=== PATIENT | male | born 1970 | race Caucasian/White ===

== ENCOUNTER 2025-01-03 11:28 | Emergency (ER) | payer SELFPAY ==
--- NOTE | 2025-01-03 11:33 | EKG_ITS ---
[facility] Test Date: 2025-01-03 Pat Name: GUILLERMO PARKER Department: Room: - Gender: Male [employer]: : 1970 Requested By: ED Temporary Provider Order Number: [id number] Reading MD: ED Temporary Provider Measurements Intervals [place] Rate: 71 P: 54 GA: 195 QRS: 17 QRSD: 84 T: 34 QT: 364 QTc: 397 Interpretive Statements SINUS RHYTHM Compared to ECG 06/08/2024 09:14:27 No significant changes /store/S0/[id number].pdf
[2025-01-03 11:46] VITALS: BP 129/84; PULSE 65; RESP 18; TEMP 37.1; O2SAT 98; BMI 28.5
--- NOTE | 2025-01-03 12:03 | XR_ITS ---
Examination: PA lateral chest 2 views Technique: Upright PA lateral chest 2 views Date and time: January 03, 2025 1315 hrs. Indications: Coughing chest pain beginning today. Findings: Normal heart size No lobar pneumonia Accentuation basilar bronchovascular markings. No pulmonary edema Impression: Bronchitis pattern
--- NOTE | 2025-01-03 12:03 | PD.EDRME ---
Rapid Medical Screening Exam RME Arrival date/time: 01/03/25 11:28 54-year-old male presents to the emergency department today for complaint of abdominal pain and chest pain Chief Complaint: Chest Pain Time Seen by Provider: 01/03/25 11:42 Vital signs: Vital Signs Temperature 98.7 F 01/03/25 11:46 Pulse Rate 65 01/03/25 11:46 Respiratory Rate 18 01/03/25 11:46 Blood Pressure 129/84 01/03/25 11:46 Pulse Oximetry (%) 98 01/03/25 11:46 Oxygen Delivery Method Room Air 01/03/25 11:46
[2025-01-03 12:50] LABS: Basophils # (Auto) 0.1 Thou/mm3 (0.0-0.2); Basophils % (Auto) 1 % (0-2.5); Eosinophils # (Auto) 0.3 Thou/mm3 (0.0-0.5); Eosinophils % (Auto) 4 % (0-10); Hematocrit 42.6 % (41.0-53.0); Hemoglobin 14.6 g/dL (13.5-16.0); Immature Granulocytes % (Auto) 1 % (0-0); Immature Granulocytes Auto 0.05 Thou/mm3 (0.00-0.00); Lymphocytes # (Auto) 1.9 Thou/mm3 (1.0-4.8); Lymphocytes % (Auto) 25 % (10-50); Mean Corpuscular HGB Conc 34.3 g/dl (31.0-37.0); Mean Corpuscular Hemoglobin 30.5 pg (25.0-35.0); Mean Corpuscular Volume 89 fL (80-100); Monocytes # (Auto) 0.6 Thou/mm3 (0.0-0.8); Monocytes % (Auto) 8 % (0-12); Neutrophils # (Auto) 4.7 Thou/mm3 (1.8-7.7); Neutrophils % (Auto) 62 % (37-80); Nucleated Red Blood Cell % 0 /100 WBC (0); Platelet Count 239 Thou/mm3 (140-440); RDW Standard Deviation 42.9 fL (35.1-43.9); Red Blood Count 4.78 Miln/mm3 (4.50-5.90); White Blood Count 7.6 Thou/mm3 (3.8-10.6)
[2025-01-03 13:12] LABS: Alanine Aminotransferase 19 U/L (10-49); Albumin, Serum 4.6 gm/dL (3.5-5.0); Albumin/Globulin Ratio 1.6 (1.2-2.2); Alkaline Phosphatase 96 U/L (46-116); Anion Gap 9 (7-16); Aspartate Amino Transferase 17 U/L (0-34); BUN/Creatinine Ratio 7 Ratio (12-20); Bilirubin,Total 0.5 mg/dL (0.3-1.2); Blood Urea Nitrogen 8 mg/dL (9-23); Calcium 9.6 mg/dL (8.3-10.6); Calcium (Corrected) 9.6 mg/dL (8.5-10.1); Carbon Dioxide 28.7 mMol/L (20.0-31.0); Chloride 101 mMol/L (98-107); Creatinine (Component) 1.2 mg/dL (0.6-1.3); Estimated Creatinine Clearance 81.9 mL/min (>60); Globulin 2.9 gm/dL (2.3-3.5); Glucose 89 mg/dL (74-106); Lipase 30 U/L (12-53); Osmolality,Calculated 274 (275-295); Potassium 3.7 mMol/L (3.4-5.1); Sodium 139 mMol/L (136-145); Total Protein 7.5 gm/dL (5.7-8.2); Troponin I < 0.002 ng/mL (0.0-0.045); eGFR > 60 See Note
[2025-01-03 13:23] LABS: B-Type Natriuretic Peptide 42 pg/mL (0-100)
[2025-01-03 15:20] VITALS: BP 125/77; PULSE 67; RESP 18; TEMP 36.7; O2SAT 98
--- NOTE | 2025-01-03 15:39 | PD.EDCHEST ---
ED Chest Pain RME/HPI General Chief Complaint: Chest Pain Stated Complaint: DIZZY, CP/BURNING, VOMITING Time Seen by Provider: 01/03/25 11:42 Arrival date/time: 01/03/25 11:28 RME / HPI RME / HPI narrative: 54-year-old male patient with no significant medical history, came in for evaluation regarding cough. Patient is being having cough for more than a week, after patient was vomiting several times x 1 week ago. Lasting for 1 day. Since then patient been coughing. Patient is worried that he might be having pneumonia. Denies any fever denies any other complaints no medications taken prior to arrival. Currently patient not having any vomiting patient's not having any chest pain and coughing. Related Data Home Medications ?Medication ?Instructions ?Recorded ?Confirmed albuterol sulfate 90 mcg/actuation 2 puff inhalation 4XD PRN 06/08/24 06/08/24 aerosol inhaler Wheezing, SOB Previous Rx's ?Medication ?Instructions ?Recorded amoxicillin 500 mg capsule 1,000 mg (2 x 500 mg) PO TID #30 06/09/24 caps azithromycin 250 mg tablet 250 mg PO QDAY #4 tabs 06/09/24 ondansetron HCl 4 mg tablet 4 mg PO Q8H PRN nausea and 06/09/24 vomiting #7 tabs albuterol sulfate 90 mcg/actuation 2 inh inhalation Q6H PRN shortness 01/03/25 aerosol inhaler of breath or wheezing #8.5 grams benzonatate 200 mg capsule 200 mg PO TID PRN cough #30 caps 01/03/25 Allergies Allergy/AdvReac Type Severity Reaction Status Date / Time No Known Allergies Allergy Verified 01/03/25 11:32 Review of Systems Review of Systems Narrative Review of Systems: Review of system reviewed and within normal limits except mentioned in HPI ED Exam Narrative Physical exam: VITAL SIGNS: Reviewed. GENERAL APPEARANCE: Alert and interactive, follows commands, no acute distress, HEAD AND FACE: Non-traumatic. ENT: PERRL, pink conjunctivitis, eyelid no trauma, Mucous membrane moist. NECK: Supple, nontender, no nuchal rigidity. CHEST: No tenderness, no crepitus, no paradoxical movement, no retractions. LUNGS: Clear, well ventilated, symmetric, no rales, no wheezing, no ronchi, no stridor, good breath sounds bilaterally. HEART: Regular rate, regular rhythm, no murmur, no gallops. ABDOMEN: Soft, positive bowel sounds, nondistended, no guarding, nontender, no rebound, no masses, RECTAL: Deferred. GENITAL: Deferred. NEUROLOGICAL: Gross motor function intact sensory function intact, Appropriate for age. MUSCULOSKELETAL: low back nontender, full range of motion. EXTREMITIES: Nontender, full range of motion. SKIN: Color pink, dry, no rash, no lacerations, no abrasions, no contusions. LYMPHATICS: Deferred. Course Quality Measures none Orders Category Date Time Status EKG (ED ONLY) *Do not use* NOW Care 01/03/25 11:33 Completed EKG (ED Only) Stat Exams 01/03/25 11:33 Draft XR chest 2V Stat Exams 01/03/25 12:03 Completed BNP [B-Type Natriuretic Peptide] Stat Lab 01/03/25 12:17 Completed CBC Stat Lab 01/03/25 12:17 Completed Comprehensive Metabolic Panel Stat Lab 01/03/25 12:17 Completed Lipase Stat Lab 01/03/25 12:17 Completed Troponin I Stat Lab 01/03/25 12:17 Completed Vital Signs Vital signs: Vital Signs Temperature 98.7 F 01/03/25 11:46 Pulse Rate 65 01/03/25 11:46 Respiratory Rate 18 01/03/25 11:46 Blood Pressure 129/84 01/03/25 11:46 Pulse Oximetry (%) 98 01/03/25 11:46 Oxygen Delivery Method Room Air 01/03/25 11:46 Chest Pain MDM Narrative MDM Narrative:: 54-year-old male patient with no significant medical history, came in for evaluation regarding cough. Patient is being having cough for more than a week, after patient was vomiting several times x 1 week ago. Lasting for 1 day. Since then patient been coughing. Patient is worried that he might be having pneumonia. Denies any fever denies any other complaints no medications taken prior to arrival. Currently patient not having any vomiting patient's not having any chest pain and coughing. Chest x-ray showed bronchitis pattern no pneumonia noted. Cardiac workup all came back normal no leukocytosis troponin is normal. EKG showed normal sinus rhythm, ventricular rate of 71 bpm, no ST segment elevation depression noted. Results discussed with the patient. Patient data External records reviewed:: None Clinical information provided by:: patient Social determinants that could affect healthcare access:: none Patient has the following chronic illnesses:: None How is presenting disease/condition affected by chronic disease/condition?: no chronic disease Evaluation data The following diagnostics were reviewed and interpreted by me:: lab results, radiology exam(s) and EKG tracing(s) Lab and/or radiology exams considered but not ordered:: None Interpretation Summary: None see results MDM Medications / Prescriptions Medications or Prescriptions considered but not ordered:: none Medication administrations:: None Consultations Consultation(s) initiated? (list below): No Diagnosis Chest Pain Differential Diagnosis: pneumothorax, chest pain and other (Pneumonia, bronchitis, cough) Most likely diagnosis given after review of the tests above:: Cough Admission Indicated Admission indicated?: not indicated Admission Request Was there a request for admission?: No Disposition Plan Disposition Plan: Discharge Discharge Attestation Discharge Attestation: The patient was given an opportunity to ask questions and understood the discharge instructions. Discharge instructions specifically effects, indications for sooner follow up or return to the emergency department, and the expected course of current diagnosis. Patient condition: Stable Discharge Plan Plan Patient Disposition: HOME (Self Care) Discharge Disposition comment: stable Prescriptions/Referrals Prescriptions/Med Rec: New benzonatate 200 mg capsule 200 mg PO TID PRN (Reason: cough) Qty: 30 0RF albuterol sulfate 90 mcg/actuation HFA aerosol inhaler 2 inh inhalation Q6H PRN (Reason: shortness of breath or wheezing) Qty: 8.5 0RF No Action albuterol sulfate 90 mcg/actuation HFA aerosol inhaler 2 puff INHALATION 4XD PRN (Reason: Wheezing, SOB) Patient Comments: INHALE 2 PUFFS BY MOUTH EVERY 4 HOURS NEEDED azithromycin 250 mg tablet 250 mg PO QDAY Qty: 4 0RF amoxicillin 500 mg capsule 1,000 mg PO TID Qty: 30 0RF ondansetron HCl 4 mg tablet 4 mg PO Q8H PRN (Reason: nausea and vomiting) Qty: 7 0RF Referrals: No Primary/Family,Physician [Primary Care Provider] - In 1 week Problem List Clinical Impression: Cough Patient/Caregiver Discharge Instructions Discharge Activity: activity as tolerated Education Materials: ED Cough Chronic Uncertain Cause Adult Additional Instructions: Thank you for the opportunity for serving you today. You are stable for discharged . You are advised to: Follow-up with your PCP in 1 to 2 days Return to ED for worsening of symptoms Increase oral fluids Print Language: [place] Stand Alone Forms: Tracy Award Info., Patient Portal Info Letter DENNISE/[employer] Supervising Physician DENNISE/ESTHELA Supervising Physician: MD Aquiles
--- NOTE | 2025-01-03 15:44 | PC.NURSE ---
no answer x 1 at 1543. checked outside and lobby.
== END 2025-01-03 15:45 | disposition home or self-care (01) ==
PROVIDERS: Nurse Practitioner Primary Care; Emergency Provider Family Medicine
DX: R05.9 Cough, unspecified (principal)
CPT/HCPCS: 36415; 71046; 80053; 83690; 83880; 84484; 85025; 93005; 99283